=== PATIENT | female | born 1980 | race Asian ===

== ENCOUNTER 2017-05-10 21:03 | Emergency (ER) | payer OTHER ==
[2017-05-10 22:35] VITALS: BP 155/83
== END 2017-05-10 22:35 | disposition home or self-care (01) ==
LOC: ED 21:03
DX: S62.524A Nondisplaced fracture of distal phalanx of right thumb, initial encounter for closed fracture (principal); I10 Essential (primary) hypertension; W31.89XA Contact with other specified machinery, initial encounter; Y93.89 Activity, other specified; Y99.8 Other external cause status; Y92.89 Other specified places as the place of occurrence of the external cause